=== PATIENT | male | born 1970 | race African-American/Black ===

== ENCOUNTER 2017-07-14 16:16 | Emergency (ER) | payer OTHER ==
[2017-07-14 16:31] VITALS: BP 136/86; PULSE 89; TEMP 98.6; BMI 20.6
--- NOTE | 2017-07-14 17:25 | PDOC ---
History of Present Illness - General History Source: Patient Exam Limitations: No Limitations - History of Present Illness Initial Comments: 07/14/17 17:52 The patient is a 46 year old male with history of daily tobacco, alcohol (1/2 pint of vodka a day) and cocaine use (1-2/week, last use was evening) who presents to the ED with complaints of heart palpitations and a fullness sensation of his left neck/clavicle. The patient describes the palpitations as a change in heartbeat, usually felt most pronounced when patient changes position. With his palpitations today, the patient also felt a pain/stiffness in his left shoulder while driving, which prompted him to go to the ER. He denies any associated shortness of breath, lightheadedness, or chest pain. In the ED, the patient reports a fullness in his left neck which he states more swollen than the right. The patient reports he has noticed this for a few months. He denies any trauma to the area and denies any pain as well. He denies any sore throat or difficulty swallowing. He reports experiencing night sweats almost every night for the past few weeks as well, but denies any fever or chills. He additionally reports recent weight loss over the past few weeks. He denies any nausea, vomiting, diarrhea, cough. Denies any urinary symptoms. <Yoanna Hammond - Last Filed: 07/15/17 00:03> <Boyd Webster - Last Filed: 07/15/17 00:12> - General Chief Complaint: Palpitations Stated Complaint: L SIDE NECK SWELLING Time Seen by Provider: 07/14/17 17:17 Past History <Yoanna Hammond - Last Filed: 07/15/17 00:03> - Past Medical History COPD: No - Suicide/Smoking/Psychosocial Hx Smoking History: Current every day smoker Number of Cigarettes Smoked Daily: 10 Information on smoking cessation initiated: No Substance Use Type: Alcohol <Boyd Webster - Last Filed: 07/15/17 00:12> - Past Medical History Allergies/Adverse Reactions: Allergies Allergy/AdvReac Type Severity Reaction Status Date / Time No Known Allergies Allergy Verified 07/14/17 16:31 Review of Systems - Review of Systems Constitutional: Yes: Chills, Night Sweats, Unintentional Wgt. Loss. No: Fever HEENTM: No: Nose Congestion Respiratory: No: Cough, Shortness of Breath Cardiac (ROS): Yes: Chest Pain, Palpitations. No: Edema, Syncope ABD/GI: No: Blood Streaked Bowels, Diarrhea, Nausea, Vomiting : No: Hematuria Musculoskeletal: Yes: Muscle Pain (L neck discomfort/fullness) Neurological: No: Headache All Other Systems: Reviewed and Negative <Boyd Webster - Last Filed: 07/15/17 00:12> *Physical Exam - Vital Signs Last Vital Signs Temp Pulse Resp BP Pulse Ox 98.6 F 89 18 136/86 99 07/14/17 16:28 07/14/17 16:28 07/14/17 16:28 07/14/17 16:28 07/14/17 16:28 - Physical Exam Comments: 07/14/17 18:12 GENERAL: The patient is awake, alert, and fully oriented, in no acute distress. HEAD: Normal with no signs of trauma. EYES: Pupils equal, round and reactive to light, extraocular movements intact, sclera anicteric, conjunctiva clear with no pallor. ENT: Ears normal, nares patent, oropharynx clear without exudates. Moist mucous membranes. NECK: Normal range of motion, supple without lymphadenopathy, JVD, or masses. LUNGS: Breath sounds equal, clear to auscultation bilaterally. No wheeze/ crackles. HEART: Regular rate and rhythm, with occasional premature beats. Normal S1 and S2 without murmur or rub. ABDOMEN: Soft/nontender/nondistended. BS wnl. No guarding or rebound. No palpable masses. No hepatosplenomegaly. EXTREMITIES: Normal range of motion, no edema. No clubbing or cyanosis. No cords, erythema, or tenderness. NEUROLOGICAL: Cranial nerves II through XII grossly intact. Normal speech, normal gait. PSYCH: Normal mood, normal affect. SKIN: Warm, Dry, normal turgor, no rashes or lesions noted. <Yoanna Hammond - Last Filed: 07/15/17 00:03> - Vital Signs Last Vital Signs Temp Pulse Resp BP Pulse Ox 98.6 F 89 18 136/86 99 07/14/17 16:28 07/14/17 16:28 07/14/17 16:28 07/14/17 16:28 07/14/17 16:28 - Physical Exam Comments: near complete erosion of nasal septum without obvious mass or active bleeding <Boyd Webster - Last Filed: 07/15/17 00:12> Heart Score/ECG Review #1 ECG reviewed & interpreted by me at: 17:27 General ECG Interpretation: Sinus Rhythm (with occasional APC), Normal Rate (83) , Normal Intervals (QTC 427), No acute ischemic changes <Boyd Webster - Last Filed: 07/15/17 00:12> ED Treatment Course - LABORATORY CBC & Chemistry Diagram: 07/14/17 17:44 07/14/17 17:44 - RADIOLOGY Radiology Studies Ordered: 07/15/17 00:03 EXAM: CT CTA CHEST HISTORY: Rule out PE COMPARISON: None. FINDINGS: There is no PE or dissection. Heart size is normal. The trachea and bronchi are patent. There is no pleural or pericardial effusion. The lungs are clear. Tiny left lower lobe bulla is noted. No fractures identified. The upper abdominal structures are normal. IMPRESSION: No evidence of pathology THIS DOCUMENT HAS BEEN ELECTRONICALLY SIGNED Abhijit Fortune MD - Medications Given in the ED: ED Medications Discontinued Medications Generic Name Dose Route Start Last Admin Trade Name Freq PRN Reason Stop Dose Admin Aspirin 162 mg 07/14/17 17:37 07/14/17 17:49 Asa - PO 07/14/17 17:38 162 mg ONCE ONE Administration <Yoanna Hammond - Last Filed: 07/15/17 00:03> - LABORATORY CBC & Chemistry Diagram: 07/14/17 17:44 07/14/17 17:44 <Boyd Webster - Last Filed: 07/15/17 00:12> Medical Decision Making - Medical Decision Making 07/14/17 17:40 A portion of this note was documented by scribe services under my direction. I have reviewed the details of the note, within reason, and agree with the documentation with the following case summary and management plan written by me. 46-year-old male with no significant past medical history but active smoker, daily drinker, and 1-2 times per week cocaine user presents today with intermittent palpitations, a left neck/supraclavicular fullness for one week, several weeks complaints of night sweats, and several months complaints of unintentional weight loss. Visit today prompted by an episode of left neck/ chest discomfort while driving, again in the setting of having subjectively felt this fullness in his left neck region. No difficulty swallowing or breathing, no voice change, no new cough or hemoptysis, no dyspnea on exertion or exertional chest pain, no vomiting or diarrhea or bloody stool, no symptoms of DVT or risk factors for DVT. Has not seen a doctor in about one year, presents for evaluation. Vital signs normal, O2 sat is normal Well-appearing, speaking full sentences Question left supraclavicular fullness but patient has been, could simply be some muscle asymmetry. No clearly enlarged lymphadenopathy Oropharynx is clear, no stridor, trachea midline Heart is regular with occasional premature beat, of which the patient is symptomatic Lungs are clear without crackles or wheezing Abdomen is benign without organomegaly No edema or calf tenderness 46-year-old male with some toxic habits of smoking, ranking, cocaine use presents with some nonspecific/atypical chest tightness, palpitations consistent with PVCs, and some constitutional type symptoms. Overall, would be concerned about some neoplastic process, especially given the supraclavicular fullness. APC explain his palpitations, his chest pain is atypical for ACS despite his risk factors. check labs, tsh cxr and ct chest ekg reassess and dispo accordingly 07/14/17 19:43 Labs are within normal limits, no leukocytosis, troponin negative, electrolytes normal. On my preliminary review of the chest x-ray, there is no acute abnormality, no obvious mediastinal lesion or tracheal deviation. CTA pending, dispo accordingly. 07/14/17 22:[address] read, discussed delay with IOC. Pt feels well, ambulating steadily on his own. Awaiting CT and agrees with d/c plan if wnl. 07/15/17 00:07 Remains clinically well, asymptomatic. CAT scan read by imaging regional director, no PE or dissection or abnormality. Patient agrees with discharge plan with PMD, cardiology, ENT follow-up. at bedside, they understand return criteria. <Boyd Webster - Last Filed: 07/15/17 00:12> *DC/Admit/Observation/Transfer - Attestations Scribe Attestion: 07/14/17 18:14 Documentation prepared by Yoanna Hammond, acting as medical assistant internal medicine for Boyd Webster MD. <Yoanna Hammond - Last Filed: 07/15/17 00:03> <Boyd Webster - Last Filed: 07/15/17 00:12> Diagnosis at time of Disposition: Palpitations, APC (atrial premature contractions) - Discharge Dispostion Disposition: HOME Condition at time of disposition: Improved - Referrals Referrals: Chad Bates MD [Staff Physician] - Gordon Neumann MD [Staff Physician] - Kurtis Leyva MD [Staff Physician] - - Patient Instructions Printed Discharge Instructions: DI for Palpitations Additional Instructions: Activity as tolerated. Stay hydrated. Blood tests, an EKG, a chest x-ray, and a CAT scan showed no acute abnormalities. Your palpitations are due to premature atrial contractions, which can be benign. You should see a pleasure craft sailor, a Holter monitor and echocardiogram may be necessary to further evaluate your symptoms. Continue any medications as previously prescribed by your physician. You should follow up with a primary doctor (consider calling Dr. Bates in the [facility]), a pleasure craft sailor (consider calling Dr. Neumann), and an ENT specialist for your nose (consider calling Dr. Leyva) as soon as possible regarding today's emergency department visit. Return to the emergency department for any new or concerning symptoms, particularly persistent or worsening chest pain, shortness of breath, fevers or chills, bloody cough.
[2017-07-14] MEDS ORDERED: ASPIRIN 81 MG CHEWABLE TABLETS PO ONE (17:37)
[2017-07-14] MEDS ORDERED: SODIUM CHLORIDE 1,000 ML IV ONE (17:37)
[2017-07-14] MEDS ORDERED: ASPIRIN 81 MG CHEWABLE TABLETS ONE (17:49)
[2017-07-14 18:14] LABS: EOS % 5.2 % (0-4.5); HEMATOCRIT 43.1 % (35.4-49); HEMOGLOBIN 14.4 GM/dL (11.7-16.9); LYMPH % 30.9 % (8-40); MCH 30.9 pg (25.7-33.7); MCHC 33.4 g/dl (32.0-35.9); MEAN CELL VOLUME 92.7 fl (80-96); MEAN PLT VOLUME 8.3 fl (7.5-11.1); NEUT % 54.9 % (42.8-82.8); PLATELET COUNT 263 K/MM3 (134-434); RBC 4.66 M/mm3 (4.00-5.60); RDW 12.8 % (11.9-15.9)
[2017-07-14 18:39] LABS: ALBUMIN 3.7 g/dl (3.4-5.0); ANION GAP 6 (8-16); BILIRUBIN,TOTAL 0.3 mg/dL (0.2-1.0); BLOOD UREA NITROGEN 14 mg/dL (7-18); CALCIUM 8.6 mg/dL (8.5-10.1); CHLORIDE 104 mmol/L (98-107); CO2 30 mmol/L (21-32); CREATININE 1.2 mg/dL (0.7-1.3); GLUCOSE,RANDOM 66 mg/dL (74-106); INR 1.08 (0.82-1.09); PROTHROMBIN TIME (PATIENT) 12.2 SEC (9.98-11.88); SGOT/AST 13 U/L (15-37); SGPT/ALT 20 U/L (12-78); SODIUM 140 mmol/L (136-145); TOT PROT 7.1 g/dl (6.4-8.2)
[2017-07-14 18:41] LABS: ALK PHOS 60 U/L (45-117)
--- NOTE | 2017-07-15 11:40 | EKG ---
Test Reason : Blood Pressure : / mmHG Vent. Rate : 083 BPM Atrial Rate : 083 BPM P-R Int : 154 ms QRS Dur : 082 ms QT Int : 364 ms P-R-T Axes : 079 071 070 degrees QTc Int : 427 ms SINUS RHYTHM WITH PREMATURE ATRIAL COMPLEXES POSSIBLE LEFT ATRIAL ENLARGEMENT BORDERLINE ECG NO PREVIOUS ECGS AVAILABLE Confirmed by MD TOPHER, MARGA ([id number]) on 07/15/2017 11:40:22 AM Referred By: Confirmed By:MARGA OBANDO MD
== END 2017-07-15 00:35 | disposition home or self-care (01) ==
LOC: JER 16:16
PROC: 3E0337Z Introduction of Electrolytic and Water Balance Substance into Peripheral Vein, Percutaneous Approach (ICD-10-PCS; principal; 2017-07-14)
DX: I49.1 Atrial premature depolarization (principal); R00.2 Palpitations; F10.10 Alcohol abuse, uncomplicated; F14.10 Cocaine abuse, uncomplicated; F17.210 Nicotine dependence, cigarettes, uncomplicated
CPT/HCPCS: 36415; 71046-TC; 71275-TC; 80053; 82550; 82553; 83735; 84443; 84484; 85025; 85610; 93005; 93010; 96360; 99285-25